=== PATIENT | male | born 1970 | race Caucasian/White ===

== ENCOUNTER 2017-07-07 20:50 | Emergency (ER) | payer OTHER | END 2017-07-07 22:19 | disposition home or self-care (01) | LOC: FER 20:50 | CPT/HCPCS: 71046-TC-FY; 99282-25 ==

== ENCOUNTER 2017-08-01 23:06 | Emergency (ER) | payer OTHER ==
[2017-08-01 23:31] VITALS: BP 118/81; PULSE 98; TEMP 97.7; BMI 35.1
--- NOTE | 2017-08-01 23:35 | PDOC ---
History of Present Illness - General Chief Complaint: Pain Stated Complaint: RIGHT UPPER CHEST AND BACK PAIN - History of Present Illness Initial Comments: 08/02/17 00:00 Pt presents to the ED complaining of R sided chest pain two days after moving a large refrigerator. Patient had no pain after moving the refrigerator, and continued to be pain free until yesterday night ( he moved the refrigerator two days ago). Extensive history of cardiac disease, including CABG in 2000 and stents placed in 2006. He is followed by his optomechanical technician every few weeks, but he has not had a stress test since 2006. Patient has a defibrilator and a known history of of Left bundle branch block, but does not recall ever being told that he has a heart murmur. Pain is right sided, with radiation to the back. It is severe and is exacerbated with movements of the chest, breathing and cough. Pain has been constant and worsening since yesterday night. Some relief with motrin at home. 08/02/17 00:14 08/02/17 00:25 08/02/17 00:27 Past History - Past Medical History Allergies/Adverse Reactions: Allergies Allergy/AdvReac Type Severity Reaction Status Date / Time No Known Allergies Allergy Verified 07/07/17 20:54 Home Medications: Ambulatory Orders Albuterol Sulfate Inhaler - [Ventolin Hfa Inhaler -] 1 - 2 inh PO Q4H PRN Alirocumab [Praluent Pen] 75 mg SQ ASDIR 07/07/17 Amiodarone HCl 200 mg PO DAILY 07/07/17 Aspirin [Aspirin EC] 81 mg PO DAILY 07/07/17 Atorvastatin Ca [Lipitor] 80 mg PO HS 07/07/17 Budesonide/Formeterol Fumarate [SYMBICORT 80/4.5mcg -] 1 inh PO BID PRN Ezetimibe [Zetia] 10 mg PO DAILY 07/07/17 Lisinopril 10 mg PO DAILY 07/07/17 Metoprolol Succinate [Toprol Xl] 100 mg PO DAILY 07/07/17 Potassium Chloride [Klor-Con 10] 10 meq PO BID 07/07/17 Cardiac Disorders: Yes COPD: Yes HTN: Yes Hypercholesterolemia: Yes - Surgical History Cardiac Surgery: Yes (STENTS, CABG X5, IACD) - Suicide/Smoking/Psychosocial Hx Smoking History: Current every day smoker Have you smoked in the past 12 months: No Number of Cigarettes Smoked Daily: 20 Information on smoking cessation initiated: Yes 'Breaking Loose' booklet given: 08/01/17 Hx Alcohol Use: No Review of Systems - Review of Systems Able to Perform ROS?: No Is the patient limited Syrian proficient: No Constitutional: No: Symptoms Reported, See HPI, Chills, Diaphoresis, Fever, Loss of Appetite, Malaise, Night Sweats, Weakness, Weight Stable, Unintentional Wgt. Loss, Unexplained wgt Loss, Other HEENTM: No: Symptoms Reported, See HPI, Eye Pain, Blurred Vision, Tearing, Recent change in vision, Double Vision, Cataracts, Ear Pain, Ocular Prothesis, Ear Discharge, Nose Pain, Nose Congestion, Tinnitus, Nose Bleeding, Hearing Loss , Throat Pain, Throat Swelling, Mouth Pain, Dental Problems, Difficulty Swallowing, Mouth Swelling, Other Respiratory: Yes: Shortness of Breath. No: Symptoms reported, See HPI, Cough, Orthopnea, SOB with Exertion, SOB at Rest, Stridor, Wheezing, Productive cough, Hemoptysis, Other Cardiac (ROS): Yes: Chest Pain, Lightheadedness ABD/GI: No: Symptoms Reported, See HPI, Abdominal Distended, Abd. Pain w/ defecation, Blood Streaked Bowels, Constipated, Diarrhea, Difficulty Swallowing , Nausea, Poor Appetite, Poor Fluid Intake, Rectal Bleeding, Vomiting, Indigestion, Abdominal cramping, Tarry Stools, Other : No: Symptoms Reported, See HPI, Burning, Dysuria, Discharge, Frequency, Flank Pain, Hematuria, Incontinence, Pain, Urgency, Testicular Mass, Testicular Swelling, Lesions, Testicular Pain, Other Musculoskeletal: No: Symptoms Reported, See HPI, Back Pain, Gout, Joint Pain, Joint Swelling, Muscle Pain, Muscle Weakness, Neck Pain, Joint Stiffness, Other Neurological: No: Symptoms reported, See HPI, Headache, Numbness, Paresthesia, Pre-Existing Deficit, Seizure, Tingling, Tremors, Weakness, Unsteady Gait, Ataxia, Dizziness, Other Psychiatric: No: Anxiety, Depression, Frequent Crying, Stressors, Sleep Pattern Change, Emotional Problems, Mood Swings, Change in Appetite, Other Endocrine: No: Symptoms Reported, See HPI, Excessive Sweating, Flushing, Intolerance to Cold, Intolerance to Heat, Increased Hunger, Increased Thirst, Increased Urine, Unexplained Weight Gain, Unexplained Weight Loss, Change in Weight, Other *Physical Exam - Vital Signs Last Vital Signs Temp Pulse Resp BP Pulse Ox 97.7 F 98 H 20 118/81 97 08/01/17 23:10 08/01/17 23:10 08/01/17 23:10 08/01/17 23:10 08/01/17 23:10 - Physical Exam General Appearance: Yes: Nourished, Appropriately Dressed. No: Apparent Distress, Disheveled, Mild Distress, Moderate Distress, Severe Distress, Alcohol on Breath, Intoxicated, Cachetic, Obese, Thin, Other HEENT: positive: Normal ENT Inspection, Normal Voice Neck: positive: Supple Respiratory/Chest: positive: Chest Tender (r sided chest wall tenderness), Lungs Clear, Normal Breath Sounds. negative: Respiratory Distress, Accessory Muscle Use, Labored Respiration, Rapid RR, Decreased Breath Sounds, Paradoxal Breathing, Crackles, Rales, Rhonchi, Stridor, Wheezing, Hyperresonant, Dullness , Plerual Rub, Other Cardiovascular: positive: Regular Rhythm, Regular Rate, S1, S2, Systolic Murmur Gastrointestinal/Abdominal: positive: Normal Bowel Sounds, Flat, Soft. negative : Tender, Organomegaly, Pulsatile Mass, Increased Bowel Sounds, Decreased BS, Protuberent, Distended, Guarding, Rebound, Tenderness, Hernia, Mass, Hepatomegaly, Spleenomegaly, Other Musculoskeletal: positive: Normal Inspection Extremity: positive: Normal Inspection, Normal Range of Motion Integumentary: positive: Normal Color, Dry, Warm Neurologic: positive: vehicle assembler II-XII NML intact, Fully Oriented, Alert, Normal Mood/ Affect Heart Score/ECG Review - History History: Slightly suspicious - Electrocardiogram EKG: Non specific repolarization disturbance - Age Age: </= 45 - Risk Factors Risk Factors Heart Score: Yes Hx Hypercholesterolemia, Yes Hx Hypertension, Yes Positive family hx of cardiac disease, Yes Hx Obesity Based on the list above the patient has:: >/=3 risk factors or Hx atherosclerotic disease - Troponin Troponin: </= normal limit - Score Heart Score - Total: 3 ED Treatment Course - LABORATORY CBC & Chemistry Diagram: 08/02/17 00:05 08/02/17 00:10 Medical Decision Making - Medical Decision Making 08/02/17 00:29 Pt presents to the ED complaining of chest pain after moving a large refrigerator. Pain is atypical, but patient has multiple risk factors for cardiac disease. Given his extensive cardiac history, I am concerned that his pain may be cardiac, despite the atypical nature of these symptoms. EKG is LBB , which patient states is old for him. Scarbossa's criteria are negative. PAtient also has a heart murmur which may be new. WIll check labs and cardiac enzymes, treat with ASA and morphine and likely admit for observation with serial enzymes and possible ECHO in AM. 08/02/17 01:42 Pain is resolved and first set of cardiac enzymes are negative. Patient prefers to go home and have testing with his optomechanical technician. He will call his optomechanical technician first thing in the morning. He understands that there is a small risk that he may be having angina or a heart attack and promises to return for worsening symptoms. Will discharge home. *DC/Admit/Observation/Transfer Diagnosis at time of Disposition: Chest pain Qualifiers: Chest pain type: precordial pain Qualified Code(s): R07.2 - Precordial pain - Discharge Dispostion Disposition: HOME Condition at time of disposition: Good Decision to Admit order: No - Referrals - Patient Instructions Printed Discharge Instructions: DI for Chest Pain Additional Instructions: return to the ED for worsening or recurrent pain, especially pain with shortness of breath or pain that radiates down your arm. You are at very high risk for a heart attack and you MUST call your optomechanical technician in the morning. You should avoid physical exertion until you see you optomechanical technician. - Post Discharge Activity
[2017-08-01] MEDS ORDERED: ASPIRIN 81 MG CHEWABLE TABLETS PO ONE (23:50)
[2017-08-01] MEDS ORDERED: morphine CARPU-JECT 4 MG/1 ML DISP.SYRIN IVPUSH ONE (23:50)
[2017-08-01] MEDS ORDERED: ASPIRIN 81 MG CHEWABLE TABLETS ONE (23:54)
[2017-08-01] MEDS ORDERED: morphine SULFATE 4 MG/ML VIAL ONE (23:55)
[2017-08-02 01:06] LABS: BASO % 0.8 % (0-2.0); EOS % 0.7 % (0-4.5); HEMOGLOBIN 14.1 GM/dL (11.7-16.9); LYMPH % 14.8 % (8-40); MCH 28.5 pg (25.7-33.7); MCHC 33.5 g/dl (32.0-35.9); MEAN CELL VOLUME 85.2 fl (80-96); MEAN PLT VOLUME 7.9 fl (7.5-11.1); MONO % 7.6 % (3.8-10.2); NEUT % 76.1 % (42.8-82.8); PLATELET COUNT 207 K/MM3 (134-434); RBC 4.93 M/mm3 (4.00-5.60); RDW 17.3 % (11.9-15.9); WHITE BLOOD COUNT 8.5 K/mm3 (4.0-10.0)
[2017-08-02 01:29] LABS: ALBUMIN 3.7 g/dl (3.4-5.0); ANION GAP 11 (8-16); BILIRUBIN,TOTAL 1.5 mg/dL (0.2-1.0); BLOOD UREA NITROGEN 35 mg/dL (7-18); CALCIUM 8.8 mg/dL (8.5-10.1); CHLORIDE 97 mmol/L (98-107); CO2 29 mmol/L (21-32); CREATININE 1.4 mg/dL (0.7-1.3); GLUCOSE,RANDOM 131 mg/dL (74-106); SGOT/AST 27 U/L (15-37); SGPT/ALT 36 U/L (12-78); SODIUM 137 mmol/L (136-145); TOT PROT 7.2 g/dl (6.4-8.2)
[2017-08-02 01:31] LABS: ALK PHOS 98 U/L (45-117)
[2017-08-02 01:33] LABS: POTASSIUM 2.9 mmol/L (3.5-5.1)
[2017-08-02] MEDS ORDERED: POTASSIUM CHLORIDE TABS 20 MEQ TABLET.ER (FP) PO ONE ×2 (01:37→01:39)
--- NOTE | 2017-08-03 17:34 | EKG ---
Test Reason : Blood Pressure : / mmHG Vent. Rate : 093 BPM Atrial Rate : 093 BPM P-R Int : 186 ms QRS Dur : 174 ms QT Int : 434 ms P-R-T Axes : 060 -13 125 degrees QTc Int : 539 ms NORMAL SINUS RHYTHM POSSIBLE LEFT ATRIAL ENLARGEMENT LEFT BUNDLE BRANCH BLOCK ABNORMAL ECG NO PREVIOUS ECGS AVAILABLE Confirmed by TAYLA LADD MD ([id number]) on 08/03/2017 5:33:53 PM Referred By: MD Curry Confirmed By:TAYLA LADD MD
== END 2017-08-02 01:49 | disposition home or self-care (01) ==
LOC: FER 23:06
PROC: 3E033NZ Introduction of Analgesics, Hypnotics, Sedatives into Peripheral Vein, Percutaneous Approach (ICD-10-PCS; principal; 2017-08-01)
DX: R07.2 Precordial pain (principal); Z95.5 Presence of coronary angioplasty implant and graft; J44.9 Chronic obstructive pulmonary disease, unspecified; E78.00 Pure hypercholesterolemia, unspecified; I10 Essential (primary) hypertension
CPT/HCPCS: 36415; 71045-TC-FY; 80053; 82550; 84484; 85025; 93005; 99283-25

== ENCOUNTER 2022-02-21 16:29 | Emergency (ER) | payer OTHER ==
[2022-02-21 16:54] VITALS: TEMP 97.7; BMI 35.4
[2022-02-21] MEDS ORDERED: KETOROLAC TROMETHAMINE 30 MG/1 ML VIAL IM ONE (17:24)
[2022-02-21] MEDS ORDERED: KETOROLAC TROMETHAMINE 30 MG/1 ML VIAL ONE (17:34)
[2022-02-21 18:16] VITALS: BP 131/95; PULSE 116; RESP 16
== END 2022-02-21 18:19 | disposition home or self-care (01) ==
LOC: FER 16:29
PROC: 3E0233Z Introduction of Anti-inflammatory into Muscle, Percutaneous Approach (ICD-10-PCS; principal; 2022-02-21)
DX: M25.562 Pain in left knee (principal)
CPT/HCPCS: 73562-TC-LT-FY; 99284-25

== ENCOUNTER 2022-09-23 21:11 | Emergency (ER) | payer OTHER ==
[2022-09-23 21:24] VITALS: BP 134/83; PULSE 130; RESP 18; TEMP 99.1; BMI 36.5
[2022-09-23] MEDS ORDERED: valACYclovir HCL 500 MG TABLET (FP) PO ONE (21:32)
[2022-09-23] MEDS ORDERED: GENTAMICIN SULFATE 0.3% OPHTHALMIC (EYE DROPS) 5ML BOTTLE OS ONE (21:33)
[2022-09-23] MEDS ORDERED: valACYclovir HCL 500 MG TABLET (FP) ONE (21:36)
[2022-09-23] MEDS ORDERED: ERYTHROMYCIN 0.5% OPHTHALMIC OINTMENT 3.5 GM TUBE ONE (21:36)
[2022-09-23] MEDS ORDERED: ERYTHROMYCIN 0.5% OPHTHALMIC OINTMENT 3.5 GM TUBE OS ONE (21:38)
== END 2022-09-23 22:45 | disposition home or self-care (01) ==
LOC: FER 21:11
DX: B02.39 Other herpes zoster eye disease (principal)
CPT/HCPCS: 99283-25

== ENCOUNTER 2023-03-24 02:05 | Emergency (ER) | payer SELFPAY ==
[2023-03-24 02:13] VITALS: BP 107/65; PULSE 102; RESP 17; TEMP 98; BMI 40.3
[2023-03-24] MEDS ORDERED: ACETAMINOPHEN 500 MG TABLET (FP) PO ONE (02:29)
[2023-03-24] MEDS ORDERED: ACETAMINOPHEN 500 MG TABLET (FP) ONE (02:31)
[2023-03-24] MEDS ORDERED: SULFAMETHOXAZOLE/TRIMETHOPRIM 800MG/160MG D.S. TABLET PO ONE (02:37)
[2023-03-24] MEDS ORDERED: CEPHALEXIN MONOHYDRATE 500 MG CAPSULE (UD) PO ONE (02:38)
[2023-03-24] MEDS ORDERED: CEPHALEXIN MONOHYDRATE 500 MG CAPSULE (UD) ONE (02:39)
== END 2023-03-24 03:09 | disposition home or self-care (01) ==
LOC: FER 02:05
PROC: 0HQ0XZZ Repair Scalp Skin, External Approach (ICD-10-PCS; principal; 2023-03-24)
DX: S01.01XA Laceration without foreign body of scalp, initial encounter (principal); R51.9 Headache, unspecified; Y04.8XXA Assault by other bodily force, initial encounter
CPT/HCPCS: 70450-TC; 99284-25

== ENCOUNTER 2023-03-31 22:29 | Emergency (ER) | payer SELFPAY ==
[2023-03-31 22:35] VITALS: BP 115/70; PULSE 84; RESP 18; TEMP 97.9; BMI 37.2
== END 2023-03-31 22:43 | disposition home or self-care (01) ==
LOC: FER 22:29
DX: Z48.02 Encounter for removal of sutures (principal)
CPT/HCPCS: 99281-25